=== PATIENT | female | born 1965 | race Caucasian/White ===

== ENCOUNTER → 2016-09-16 06:13 | Day surgery (SDC) | payer MEDICARE, MEDICAID ==
--- NOTE | 2016-09-02 09:53 | HP ---
HISTORY AND PHYSICAL: DATE OF ADMISSION: 09/16/16 [facility] PROCEDURE: Left knee arthroscopy with partial medial meniscectomy. CHIEF COMPLAINT: Left knee pain. HISTORY OF PRESENT ILLNESS: Ms. Lama is a 51-year-old female with complaints of left knee pain. She has failed conservative management and has elected to proceed with a left knee arthroscopy with partial medial meniscectomy. The surgery is scheduled for 09/16/16. PAST MEDICAL HISTORY: 1. Hypertension. 2. Asthma. 3. Acid reflux. PAST SURGICAL HISTORY: 1. T2 fusion with bone graft. 2. Breast reduction. 3. . 4. Tubal ligation. 5. Left knee arthroscopy. CURRENT MEDICATIONS: 1. Symbicort. 2. Xanax. 3. Albuterol. 4. Omeprazole. 5. Fentanyl. 6. Oxycodone. ALLERGIES: LATEX and TAPE. FAMILY HISTORY: Hypertension. SOCIAL HISTORY: She is a 51-year-old female. She lives alone. She does not smoke or use drugs. She uses occasional alcohol. She is not currently working. REVIEW OF SYSTEMS: A complete 14-point review of systems was reviewed with the patient, all was negative or noncontributory. PHYSICAL EXAMINATION GENERAL: She is well developed, well nourished, in no acute distress. VITAL SIGNS: She stands 5 feet 2 inches tall, 215 pounds. Her blood pressure is 152/99, her heart rate is 96. HEENT: Normocephalic, atraumatic. NECK: Supple. No palpable lymph nodes. Trachea is midline. PULMONARY: Lungs are clear to auscultation. CARDIOLOGIC: Regular rate and rhythm. Strong S1 and S2. No murmurs, gallops, or rubs. No peripheral edema. ABDOMEN: Soft, nontender, nondistended. NEUROLOGICAL: She is alert and oriented x3. Cranial nerves II through XII are intact. MUSCULOSKELETAL: Left lower extremity, the skin is intact. There is a mild joint effusion and some tenderness over the medial joint line. Negative Gelacio 's. Lower extremity muscle group strengths are intact at 5/5. She has intact sensation and 2+ dorsalis pedis pulses. ASSESSMENT AND PLAN: Ms. Lama is a 51-year-old female with continued complaints of left knee pain. She has elected to proceed with the left knee arthroscopy with partial medial meniscectomy, which is scheduled for 09/16/16, with Dr. Dallas. Dr. Dallas discussed the risks and benefits of the surgery today and all of her questions were answered. She will follow up with Dr. Dallas 10 to 14 days after the surgery. TIMOTHY PETERSON [id number]/[facility] #: [id number] KARY
[~2016-09-16 06:13] MED LIST: Acetaminophen TAB* 325 MG PO PRN; Buffered Lidocaine 1% SYRIN* 3 ML/SYR SYRINGE INTRADERM ONE; Bupivacaine 0.5% SDV PF* 30 ML VIAL ONE; Dexamethasone IV* 4 MG/ML 1 ML (4 MG) ONE; DiMENhydriNATE IV* 50 MG/ML VIAL IV PUSH PRN; EPINEPHrine AMP 1 MG/ML ONE; Famotidine IV* 10 MG/ML 2 ML (20 mg) ONE; Ketorolac INJ* 30 MG/ML 1 ML VIAL ONE; Levalbuterol 0.63MG/3ML NEB INH PRN; Lidocaine 2% PF* 5 ML VIAL ONE; Midazolam* 1 MG/ML 2 ML VIAL (2 MG) ONE; Ondansetron INJ* 2 MG/ML VIAL IV PRN; PROCHLORPERAZINE INJ 5 MG/ML 2 ML VIAL IV PRN; Propofol* 10 MG/ML 20 ML BTL IV PUSH ONE; ceFAZolin 2 GM PREMIX(*) 2 GM/50 ML BAG IVPB ONE; fentaNYL* 50 MCG/ML 2 ML VIAL (100 MCG VIAL) IV PRN; fentaNYL* 50 MCG/ML 2 ML VIAL (100 MCG VIAL) ONE; methylPREDNISolone ACETATE 80* 80 MG/ML 1 ML VIAL ONE; oxyCODONE/Acetamin 5/325 MG* TAB ONE; oxyCODONE/Acetamin 5/325 MG* TAB PO PRN
[2016-09-16 09:51] VITALS: BP 135/93
--- NOTE | 2016-09-17 11:22 | OP ---
OPERATIVE NOTE: DATE OF OPERATION: 09/16/16 DATE OF : 67 ATTENDING SURGEON: Indy Dallas MD SPREADING MACHINE OPERATOR: TIMOTHY Hunt ANESTHESIOLOGIST: Dr. Padilla. ANESTHESIA: General. PRE-OP DIAGNOSIS: Left knee pain with medial meniscal tear. POST-OP DIAGNOSES: Left knee medial meniscal tear involving posterior horn and body, moderate to se rober degenerative osteoarthritis of the medial and patellofemoral compartment. OPERATIVE PROCEDURE: Left knee arthroscopy with partial medial meniscectomy and patellofemoral williams droplasty. COMPLICATIONS: None. EBL: Less than 25 cc. SPECIMENS: None. BRIEF HISTORY/INDICATION: Ms. Lama is a 51-year-old female who had a fall and injured her left kne e with a twisting mechanism. She felt clicking and catching as well as severe pain along her medial joint line. This was unrelieved by intraarticular injection, antiinflammatories, pain mediation, a nd physical therapy. MRI confirmed a re-tear of her medial meniscus involving the posterior horn and body of the meniscus. She elected to have arthroscopy with partial meniscectomy. She understood th at she had baseline arthritis and this would not be helped by the procedure. Informed consent was o btained from the patient. She understood the risks of the surgery included but were not limited to bleeding, infection, damage to nearby structures, continued pain, need for further surgery, stroke, heart attack, blood clot, and . She wished to proceed. INTRAOPERATIVE FINDINGS: Intraoperatively, the patient was noted to have grade 3 and 4 Outerbridge cartilage changes of the patellofemoral compartment with frayed cartilage. She also was noted to norton ve grade 3 and 4 Outerbridge cartilage changes along the medial femoral condyle. Her meniscal tear involved the posterior horn in a radial-type tear as well as a longitudinal-type tear of the body of the posterior 50% of the medial meniscus along the white-red zone. DESCRIPTION OF PROCEDURE: Ms. Lama was identified in the preanesthesia unit. Her left lower extre mity was marked as the correct operative side. Informed consent was signed and placed in the chart. The patient was taken to the operating room and placed under general anesthesia without difficulty . Left lower extremity was prepped and dapped in the usual sterile fashion. Preop time-out was mad e to correctly identify the patient's side and site. Appropriate perioperative antibiotics were giv en within 1 hour of incision. A standard 0.5 cm anterolateral portal incision was made with a 15 blade and carried down through th e capsule. Trocar was introduced. As soon as the light and water sources were turned on, there was immediate visualization of the suprapatellar pouch. A tour of the knee joint was performed. Supra patellar pouch had no obvious abnormality. The patellofemoral compartment showed exposed chondral b one along the medial and lateral patellar fat with frayed cartilage. There was also frayed cartilag e and exposed chondral bone along the trochlear groove of the femur. Medial gutter showed no plica or loose body. Examination of the medial compartment showed grade 3 and 4 Outerbridge cartilage tammi nges with expose of chondral bone along the medial femoral condyle. Posterior medial meniscus had n o obvious meniscal tear. ACL and PCL appeared to be intact. The knee was placed in the figure-of-f our position. Lateral compartment had very minimal degenerative changes. Meniscus appeared to be i ntact. Popliteus appeared to be intact. Lateral gutter had no abnormality. Under direct visualization, a medial portal incision was made with a 15 blade. A probe was introduc ed and a second tour of the knee joint was performed. The medial meniscus tear involved the posteri or 50% of the medial meniscus in a longitudinal fashion along the white-red zone. Also, a radial-ty pe tear involving the posterior horn of the medial meniscus. No further meniscal tears were identif ied. Straight biter and Shutts were used to perform partial medial meniscectomy until there was a s mooth border along the posterior edge of the medial meniscus. Shaver was used as well to smooth the border of the meniscus. Radiofrequency ablation wand was used to further smooth the edge of the me niscus as well as clear some inflammatory soft tissue from the anterior joint line. Radiofrequency ablation wand was then used to carefully smooth any frayed cartilage along the patellofemoral compar tment. The knee was copiously irrigated with sterile saline. All instruments were carefully removed. The incisions were closed using 3-0 nylon suture. Intraarticular injection of 80 mg of Depo-Medrol and 6 cc of 0.25% Marcaine was placed in the knee joint. The patient's incisions were covered using ster ile Xeroform, 4 x 4's, and Webril. Sher wrap and cold pack were placed over this. The patient's anesthesia was reversed without difficulty. She was taken to the PACU in stable condi tion. Intended weightbearing will be weightbearing as tolerated. Intended DVT prophylaxis will be Coumadin with a Lovenox bridge. [id number]/[facility] #: [id number]
== END | disposition home or self-care (01) ==
LOC: OR 06:13
PROVIDERS: ATTEND Orthopaedic Surgery Adult Reconstructive Orthopaedic Surgery
DX: S83.242A Other tear of medial meniscus, current injury, left knee, initial encounter (principal); X58.XXXA Exposure to other specified factors, initial encounter; M17.12 Unilateral primary osteoarthritis, left knee; I10 Essential (primary) hypertension; J45.909 Unspecified asthma, uncomplicated; K21.9 Gastro-esophageal reflux disease without esophagitis
CPT/HCPCS: A9270-GY; J0171; J0690; J1040; J1100; J1885; J2250; J2704; J3010

== ENCOUNTER 2018-03-11 06:14 | Day surgery (SDC) | payer MEDICARE ==
--- NOTE | 2018-02-22 09:51 | HP ---
HISTORY AND PHYSICAL: DATE OF ADMISSION/SURGERY: 03/11/18. DATE OF OFFICE VISIT: 02/10/18. SURGEON: Indy Dallas MD.* (DICTATED BY TIMOTHY PETERSON)7 PROCEDURE: Right knee arthroscopy with partial meniscectomy, possible chondroplasty, and possible synovectomy. CHIEF COMPLAINT: Right knee pain. HISTORY OF PRESENT ILLNESS: Ms. Lama is a 52-year-old female with complaints of right knee pain and MRI confirms a meniscus tear. She has elected to proceed with right knee arthroscopy with partial meniscectomy, possible chondroplasty, and possible synovectomy. The surgery is scheduled for 03/11/18. PAST MEDICAL HISTORY: Hypertension, asthma, and acid reflux. PAST SURGICAL HISTORY: Left knee arthroscopy x2, tubal ligation, , breast reduction and T2 fusion. CURRENT MEDICATIONS: 1. Lisinopril 10 mg daily. 2. Fentanyl patch. 3. Oxycodone 5 mg. 4. Symbicort. 5. Xanax 0.5 mg twice a day. 6. Albuterol as needed. 7. Omeprazole. 8. Cymbalta. ALLERGIES: To LATEX and TAPE. FAMILY HISTORY: Heart disease, hypertension, and stroke. SOCIAL HISTORY: She is a 52-year-old female. She lives alone. She does not smoke or use drugs. Uses occasional alcohol. REVIEW OF SYSTEMS: A complete 14-point review of systems was reviewed with the patient, it was positive for GERD and asthma. She denies history of DVT, PE, hepatitis, HIV, or anesthesia problems. PHYSICAL EXAMINATION GENERAL: She is well developed, well nourished, in no acute distress. She is alert and oriented x3. Pleasant mood and appropriate affect. VITAL SIGNS: She stands 62 inches tall, weighs 218 pounds. Blood pressure is 141/74, and heart rate 79. MUSCULOSKELETAL: Right lower extremity, the skin is intact. There are no open wounds or abrasions. She has some tenderness over the medial joint line. Positive Gerald's. Positive Apley's. 2+ dorsalis pedis pulses. Intact sensation in her lower extremity. Muscle group strengths are intact at 5/5. ASSESSMENT AND PLAN: Ms. Lama is a 52-year-old female with complaints of right knee pain and MRI confirms a medial meniscus tear and she is elected to proceed with right knee arthroscopy with partial meniscectomy, possible chondroplasty, and possible synovectomy. The surgery is scheduled for 03/11/18 , with Dr. Dallas. Dr. Dallas discussed the risks and benefits of the surgery at today's visit and all of her questions were answered. She will follow up with Dr. Dallas 2 weeks after the surgery. TIMOTHY PETERSON [id number]/[facility] #: [id number] MTDD
[~2018-03-11 06:14] MED LIST changes: -Acetaminophen TAB* 325 MG PO PRN; +Buffered Lidocaine 0.9% SYRIN* 5 ML/SYR SYRINGE INTRADERM ONE; -Buffered Lidocaine 1% SYRIN* 3 ML/SYR SYRINGE INTRADERM ONE; -Bupivacaine 0.5% SDV PF* 30 ML VIAL ONE; -Dexamethasone IV* 4 MG/ML 1 ML (4 MG) ONE; -DiMENhydriNATE IV* 50 MG/ML VIAL IV PUSH PRN; -EPINEPHrine AMP 1 MG/ML ONE; +Famotidine IV* 10 MG/ML 2 ML (20 mg) IV ONE; -Famotidine IV* 10 MG/ML 2 ML (20 mg) ONE; -Ketorolac INJ* 30 MG/ML 1 ML VIAL ONE; -Levalbuterol 0.63MG/3ML NEB INH PRN; -Lidocaine 2% PF* 5 ML VIAL ONE; -Midazolam* 1 MG/ML 2 ML VIAL (2 MG) ONE; -Ondansetron INJ* 2 MG/ML VIAL IV PRN; -PROCHLORPERAZINE INJ 5 MG/ML 2 ML VIAL IV PRN; -Propofol* 10 MG/ML 20 ML BTL IV PUSH ONE; -ceFAZolin 2 GM PREMIX(*) 2 GM/50 ML BAG IVPB ONE; -fentaNYL* 50 MCG/ML 2 ML VIAL (100 MCG VIAL) IV PRN; -fentaNYL* 50 MCG/ML 2 ML VIAL (100 MCG VIAL) ONE; -methylPREDNISolone ACETATE 80* 80 MG/ML 1 ML VIAL ONE; -oxyCODONE/Acetamin 5/325 MG* TAB ONE; -oxyCODONE/Acetamin 5/325 MG* TAB PO PRN
[2018-03-11] MEDS ORDERED: ceFAZolin 2 GM in NS PREMIX(*) 2 GM/100 ML BAG IVPB ONE (06:50)
[2018-03-11] MEDS ORDERED: Famotidine IV* 10 MG/ML 2 ML (20 mg) ONE (06:50)
[2018-03-11] MEDS ORDERED: EPINEPHRINE 1 MG/ML 1 ML VIAL ONE ×2 (06:55→06:59)
[2018-03-11] MEDS ORDERED: methylPREDNISolone ACETATE 80* 80 MG/ML 1 ML VIAL ONE (06:55)
[2018-03-11] MEDS ORDERED: ROPIVACAINE 5 MG/ML 30 ML BTL (0.5%) ONE (06:55)
[2018-03-11] MEDS ORDERED: Dexamethasone IV* 4 MG/ML 1 ML (4 MG) ONE (07:02)
[2018-03-11] MEDS ORDERED: fentaNYL* 50 MCG/ML 2 ML VIAL (100 MCG VIAL) ONE ×4 (07:02→09:12)
[2018-03-11] MEDS ORDERED: Ondansetron INJ* 2 MG/ML VIAL ONE (07:02)
[2018-03-11] MEDS ORDERED: Ketorolac INJ* 30 MG/ML 1 ML VIAL ONE (07:02)
[2018-03-11] MEDS ORDERED: Lidocaine 2% PF * 5 ML VIAL ONE (07:02)
[2018-03-11] MEDS ORDERED: Propofol* 10 MG/ML 20 ML BTL IV PUSH ONE (07:02)
[2018-03-11] MEDS ORDERED: KETAMINE HCL* 50 MG/ML 10 ML VIAL ONE (07:03)
[2018-03-11] MEDS ORDERED: Midazolam* 1 MG/ML 5 ML VIAL (5 MG) ONE (07:03)
[2018-03-11] MEDS ORDERED: Bupivacaine 0.25% SDV PF* 10 ML VIAL INJ ONE (07:27)
[2018-03-11] MEDS ORDERED: HYDROmorphone INJ1* 1 MG/ML SYRINGE ONE ×3 (08:01→09:38)
[2018-03-11] MEDS ORDERED: Ondansetron INJ* 2 MG/ML VIAL IV PRN (08:25)
[2018-03-11] MEDS ORDERED: Naloxone* 0.4 MG/ML 1 ML VIAL IV PRN (08:25)
[2018-03-11] MEDS: fentaNYL* 50 MCG/ML 2 ML VIAL (100 MCG VIAL) IV PRN ×5 (08:27→09:14)
[2018-03-11] MEDS: HYDROmorphone INJ1* 1 MG/ML SYRINGE IV PRN ×2 (08:31→08:42)
[2018-03-11] MEDS ORDERED: Labetalol IV* 5 MG/ML 20 ML VIAL ONE (08:58)
[2018-03-11] MEDS: Labetalol IV* 5 MG/ML 20 ML VIAL IV PUSH PRN ×3 (09:01→09:31)
[2018-03-11] MEDS ORDERED: oxyCODONE/Acetamin 5/325 MG* TAB ONE ×2 (09:12→09:30)
[2018-03-11] MEDS ORDERED: HYDROmorphone INJ1* 1 MG/ML SYRINGE IV PRN (09:35)
[2018-03-11 10:05] VITALS: BP 135/81
--- NOTE | 2018-03-12 06:54 | OP ---
OPERATIVE NOTE: DATE OF OPERATION: 03/11/18 DATE OF : 67 ATTENDING SURGEON: Indy Dallas MD COTTON STRIPPER: TIMOTHY Hunt Ms. did help throughout the procedure with preparation of the leg, wound retraction, manipul ation of the knee, and wound closure. ANESTHESIOLOGIST: Dr. Mccauley ANESTHESIA: General. PRE-OP DIAGNOSES: Right knee medial meniscal tear, [id number] osteoarthritis. POST-OP DIAGNOSES: Right knee medial meniscal tear, [id number]-sp-[id number] degenerative osteoarthritis. OPERATIVE PROCEDURE: Right knee arthroscopy with partial medial meniscectomy, anterior synovectomy, and patellofemoral chondroplasty. BRIEF HISTORY/INDICATION: Ms. Lama is a 53-year-old female who stepped on a hole in November 2017, twis ting the right knee. She developed severe pain and mechanical symptoms. MRI confirmed a medial meni scal tear. She elected to undergo right knee arthroscopy with partial meniscectomy, possible chondro plasty, possible synovectomy due to continued pain and decreased quality of life. She failed conserv ative treatment. She understood the risks of surgery included, but were not limited to, bleeding, in fection, damage to nearby structures, continued pain, need for further surgery, progression of arthri tis, stroke, heart attack, blood clot, and . She wishes to proceed. INTRAOPERATIVE FINDINGS: Intraoperatively, the patient was noted to have a radial and linear tear in the posterior horn of the medial meniscus. Also small parrot- beak type tear along the anterior med ial meniscus. She had a grade 3 and 4 Outerbridge cartilage changes with exposed subchondral bone in the medial compartment along the medial femoral condyle and is also along the medial and lateral pat ellar facet. She had a enlargement of the anterior synovitis. COMPLICATIONS: None. ESTIMATED BLOOD LOSS: Less than 25 cc. SPECIMEN: None. DESCRIPTION OF PROCEDURE: Ms. Lama was identified in the preanesthesia unit. Her right lower extre mity was marked as the correct operative side. Informed consent was signed and placed in the chart. The patient was taken to the operating room and placed under general anesthesia. Right lower extrem ity was prepped and draped in the usual sterile fashion. Preop time-out was made to correctly identi fy the patient, side, and site. Appropriate perioperative antibiotics were given within 1 hour of in cision. A standard 1.5 cm anterolateral portal incision was made in the right knee joint. Trocar was introduc ed. As soon as the light and water sources were turned on, there was immediate visualization of supr apatellar pouch. A tour of the knee joint was performed. Suprapatellar pouch showed no obvious abno rmality. The patellofemoral compartment showed grade 3 and 4 Outerbridge cartilage changes. There wa s exposed subchondral bone along the medial and lateral patellar facet. Lateral patellar facet had so me cartilage flaps visible. Medial gutter showed no loose body or plica. Medial compartment showed large amount of the anterior synovitis. The posterior medial meniscus showed no obvious meniscal tea r that appeared to be longitudinal. The anterior meniscus had a small parrot-beak type tear with dis placement into the joint. ACL and PCL appeared to be intact. The knee was placed in a adsthd-bs-lqs r position. There was no significant degenerative changes in this compartment. There was exposed flores bchondral bone along the medial and femoral condyle. No obvious meniscal tear. Lateral gutter showe d no loose body or plica. Under direct visualization, a medial portal incision was made with a 10 blade. The probe was introdu chika and a second tour of the knee joint was performed. Medial meniscal tear was a small parrot-beak type tear in the anterior meniscus in the white-red zone. Posterior meniscal tear was a radial tear along the posterior horn as well as a longitudinal component in the white-red zone of the posterior 1 /3 of the medial meniscus. Radiofrequency ablation wand and shaver were used to perform an anterior synovectomy. Next, radiofrequency ablation wand was used to smooth any cartilage flap in the patello femoral joint. The straight biter and shaver were used to perform partial medial meniscectomy. Meniscal tears were c arefully excised until a smooth border of the meniscus was obtained. Further probing of the medial m eniscus showed no additional tears. This was mainly in the white-red zone. The knee was copiously i rrigated with sterile saline. All instruments were removed. Incisions were closed using 3-0 nylon s uture. Intra-articular injection of 80 mg Depo-Medrol and 6 cc of 0.25% Marcaine was placed in the k nee joint. The patient's incisions were covered with Xeroform, 4x4s, and Webril. Sher wrap and cold pack were placed over this. Her anesthesia was reversed without difficulty. She was taken to the [facility] in stable condition. Intended weightbearing will be weightbearing as tolerated. She will follow u p in 2 weeks's time for recheck. [id number]/[facility] #: [id number]
== END 2018-03-11 10:31 | disposition home or self-care (01) ==
LOC: OR 06:14
PROVIDERS: ATTEND Orthopaedic Surgery Adult Reconstructive Orthopaedic Surgery
DX: S83.241A Other tear of medial meniscus, current injury, right knee, initial encounter (principal); M17.11 Unilateral primary osteoarthritis, right knee; M65.861 Other synovitis and tenosynovitis, right lower leg; W18.09XA Striking against other object with subsequent fall, initial encounter; Y92.89 Other specified places as the place of occurrence of the external cause; M25.561 Pain in right knee; I10 Essential (primary) hypertension; J45.909 Unspecified asthma, uncomplicated; K21.9 Gastro-esophageal reflux disease without esophagitis; K76.0 Fatty (change of) liver, not elsewhere classified; Z79.891 Long term (current) use of opiate analgesic; G89.4 Chronic pain syndrome
CPT/HCPCS: A9270-GY; J0690; J1040; J1100; J1170; J1885; J2250; J2405; J2704; J2795; J3010; J3490